=== PATIENT | male | born 1990 | race Caucasian/White ===

== ENCOUNTER 2017-07-28 08:41 | Emergency (ER) | payer BC ==
[2014-07-18 09:30] VITALS: BMI 31.9
[2017-07-28 08:58] LABS: BASOPHILS 0.1 % (0-2); EOSINOPHILS 0.6 % (0-7); HEMATOCRIT 45.8 % (42.0-54.0); HEMOGLOBIN 16.1 g/dL (13.5-17.5); IMMATURE GRANULOCYTES 0.5 % (0-5); LYMPHOCYTES 16.7 % (15-50); MCHC 35.2 g/dL (31.0-37.0); MCV 88.1 fL (80.0-100.0); MEAN PLATELET VOLUME 10.2 fL (7.4-10.4); MONOCYTES 3.9 % (2-11); NEUTROPHILS 78.2 % (40-80); PLATELET COUNT 220 10x3/uL (130-400); WBC 17.9 10x3/uL (4.8-10.8)
[2017-07-28 09:19] LABS: ALBUMIN 4.1 g/dL (3.4-5.0); ALKALINE PHOSPHATASE 104 U/L (46-116); ALT (SGPT) 112 U/L (10-68); BILIRUBIN - TOTAL 0.23 mg/dL (0.2-1.3); CALC OSMOLALITY 286 mosm/kg (275-300); CALCIUM 9.3 mg/dL (8.5-10.1); CHLORIDE - SERUM 104 mmol/L (98-107); GLUCOSE 109 mg/dL (74-106); PROTEIN - SERUM 7.5 g/dL (6.4-8.2); SODIUM 142 mmol/L (136-145); UREA NITROGEN 21 mg/dL (7-18); eGFR NON AFRICAN AMERICAN > 90 mL/min (90-120)
[2017-07-28 09:33] LABS: AMYLASE - SERUM 29 U/L (25-115); LIPASE 94 U/L (73-393)
[2017-08-19] MEDS ORDERED: MULTIPLE VITAMI1 TA1 PO (11:29)
[2017-08-19] MEDS ORDERED: FISH OIL 1,0001 CA1 PO (11:30)
== END 2017-07-28 10:52 | disposition home or self-care (01) ==
LOC: D.ER 08:41
PROVIDERS: Family Medicine
DX: K52.9 Noninfective gastroenteritis and colitis, unspecified (principal)

== ENCOUNTER → 2017-07-30 15:07 | Outpatient (CLI) | payer BC ==
[2014-07-18 09:30] VITALS: BMI 31.9
[~2017-07-30 15:07] MED LIST: FISH OIL 1,0001 CA1 PO; HYDROCODON-ACE1 EAC7 PO; MULTIPLE VITAMI1 TA1 PO
[2017-07-30 15:31] LABS: BASOPHILS 0.1 % (0-2); EOSINOPHILS 2.6 % (0-7); HEMATOCRIT 41.1 % (42.0-54.0); HEMOGLOBIN 14.3 g/dL (13.5-17.5); IMMATURE GRANULOCYTES 0.8 % (0-5); LYMPHOCYTES 37.9 % (15-50); MCH 30.8 pg (26.0-34.0); MCHC 34.8 g/dL (31.0-37.0); MCV 88.4 fL (80.0-100.0); MEAN PLATELET VOLUME 10.3 fL (7.4-10.4); MONOCYTES 9.2 % (2-11); NEUTROPHILS 49.4 % (40-80); PLATELET COUNT 206 10x3/uL (130-400); RBC 4.65 10x6/uL (4.20-6.10); RDW 12.1 % (11.5-14.5); WBC 7.6 10x3/uL (4.8-10.8)
[2017-07-30 15:51] LABS: ALBUMIN 3.6 g/dL (3.4-5.0); BILIRUBIN - TOTAL 0.33 mg/dL (0.2-1.3); CARBON DIOXIDE 32.1 mmol/L (21.0-32.0); CREATININE - SERUM 1.4 mg/dL (0.6-1.3); POTASSIUM - SERUM 4.1 mmol/L (3.5-5.1); PROTEIN - SERUM 6.6 g/dL (6.4-8.2)
== END | disposition home or self-care (01) ==
LOC: D.LAB 15:07
PROVIDERS: Internal Medicine Gastroenterology
DX: R79.89 Other specified abnormal findings of blood chemistry (principal); R10.11 Right upper quadrant pain

== ENCOUNTER → 2017-08-08 08:26 | Outpatient (CLI) | payer BC ==
[2014-07-18 09:30] VITALS: BMI 31.9
== END | disposition home or self-care (01) ==
LOC: D.US 08:26 → D.NM 09:30
DX: R10.11 Right upper quadrant pain (principal); R11.2 Nausea with vomiting, unspecified

== ENCOUNTER 2017-08-20 06:15 | Day surgery (SDC) | payer BC ==
[~2017-08-20] VITALS: Ht 182.9 cm; Wt 95.3 kg
[~2017-08-20 06:15] MED LIST changes: -HYDROCODON-ACE1 EAC7 PO
[2017-08-20 07:59] VITALS: BP 114/65; Ht 182.9 cm; Wt 95.3 kg
[2017-08-20] MEDS ORDERED: HYDROCODON-ACE1 EAC7 PO (11:09)
== END 2017-08-20 14:30 | disposition home or self-care (01) ==
LOC: D.OPS 06:15 → D.PAN 09:00 → D.OPS 09:00
DX: K82.8 Other specified diseases of gallbladder (principal); K21.9 Gastro-esophageal reflux disease without esophagitis; Z01.812 Encounter for preprocedural laboratory examination